=== PATIENT | male | born 1950 | race Caucasian/White ===

== ENCOUNTER 2017-11-04 14:17 | Emergency (ER) | payer MEDICARE, OTHER, SELFPAY ==
[2017-11-04 14:22] VITALS: BP 144/77; PULSE 84; RESP 15; TEMP 36.2; O2SAT 97; BMI 36.7
--- NOTE | 2017-11-04 14:25 | DI.RAD.S_ITS ---
PROCEDURE: XR ELBOW RT MIN 3V INDICATIONS: right elbow swollen TECHNIQUE: 3 views of the elbow were acquired. COMPARISON: None. FINDINGS: Bones: There is lucency in the coronoid process of ulna. No dislocations. No suspicious bony lesions. There is calcification around the medial humeral epicondyle, suspicious for epicondylitis. Soft tissues: No elbow joint effusion. No suspicious soft tissue calcifications. IMPRESSION: 1. Lucency in the coronoid process of ulna, possibly caused by nondisplaced fracture or artifact. Recommend correlation with focal pain/tenderness. If clinical symptoms persist or clinical suspicion for pathology is high, MRI is suggested for further evaluation. 2. Suspect medial epicondylitis. Dictated by: Cathy Hoffman M.D. on 11/04/2017 at 15:39 Approved by: Cathy Hoffman M.D. on 11/04/2017 at 15:44
--- NOTE | 2017-11-04 16:31 | PC.NURSE ---
pt has multiple scratches on rt forearm, states he had been cleaning out Raspberry bushes.
--- NOTE | 2017-11-04 16:43 | ED.EXTPRO ---
HPI - Extremity Problem <Juli Navas PA-C - Last Filed: 11/04/17 18:56> General Chief complaint: Extremity Problem,Nontraumatic Stated complaint: RIGHT ELBOW SWELLING Time Seen by Provider: 11/04/17 16:43 Source: patient Mode of arrival: ambulatory Limitations: no limitations History of Present Illness HPI Narrative: This 67-year-old gentleman comes in due to swelling in the elbow for about 4 days. He denies any specific trauma aside from may be leaning on the elbow, and he has been trimming a lot of roman bushes and doing some yardwork. He states that he does have a history of recurrent bursitis in the elbow due to playing baseball, and has a history of bone chips. He denies any other new repetitive motion or trauma. He was noted to have a temperature of 100? at the walk-in clinic, but had been outside prior and none here. He states that the swelling is not especially painful. No difficulty using the arm or the elbow. Denies any other new complaints or symptoms today. Related Data Home Medications Medication Instructions Recorded Confirmed multivitamin 1 tab PO DAILY #0 09/05/10 11/04/17 saw palmetto 1 cap PO DAILY #0 09/05/10 11/04/17 Previous Rx's Medication Instructions Recorded lisinopril 40 mg PO QDAY #90 tab 02/16/17 amlodipine 10 mg tablet 10 mg PO QDAY #90 tab 09/26/17 cephalexin [Keflex] 500 mg PO QID #28 cap 11/04/17 Allergies Allergy/AdvReac Type Severity Reaction Status Date / Time Sulfa (Sulfonamide Allergy Unknown Verified 11/04/17 14:22 Antibiotics) [SULFA (SULFONAMIDE ANTIBIOTICS)] erythromycin base AdvReac Mild NAUSEA Verified 11/04/17 14:22 [ERYTHROMYCIN BASE] Review of Systems <Juli Navas PA-C - Last Filed: 11/04/17 18:56> Review of Systems All systems reviewed & are unremarkable except as noted in HPI and below Exam <Juli Navas PA-C - Last Filed: 11/04/17 18:56> Narrative Exam Narrative: GENERAL APPEARANCE: Patient sitting comfortably, in no distress. LUNGS: Clear to auscultation bilaterally. HEART: Rate and rhythm regular without murmur, normal S1 and S2, no S3 or S4. MUSCULOSKELETAL: Right elbow mild, nontender effusion. He has full active range of motion. No tenderness over the forearm, upper arm or wrist. DERMATOLOGIC: He has numerous small scrapes and abrasions on both extremities, noted on the right anterior and posterior forearm. Both arms are ch, but the right forearm is noted to be slightly more erythematous and warm on the posterior surface and there is also some patchy erythema on the medial border just proximal to the elbow, no open wounds or drainage. No papules or pustules. Margins of erythema inked Initial Vital Signs Initial Vital Signs: Vital Signs Temperature 97.2 F L 11/04/17 14:22 Pulse Rate 84 11/04/17 14:22 Respiratory Rate 15 11/04/17 14:22 Blood Pressure 144/77 H 11/04/17 14:22 Pulse Oximetry 97 11/04/17 14:22 <Rosenda Langford DO - Last Filed: 11/06/17 16:52> Initial Vital Signs Initial Vital Signs: Vital Signs Temperature 97.2 F L 11/04/17 14:22 Pulse Rate 84 11/04/17 14:22 Respiratory Rate 15 11/04/17 14:22 Blood Pressure 144/77 H 11/04/17 14:22 Pulse Oximetry 97 11/04/17 14:22 Course <Juli Navas PA-C - Last Filed: 11/04/17 18:56> Additional Information: It is not clear from findings today whether patient has early cellulitis. He does not appear to have a septic elbow. Nontender, afebrile on his visit here and this is a recurrent condition. He may have simply had more sun exposure when out working on the right arm dorsum, however he does have also have numerous small abrasions and possibly puncture by a thorn. Will start cephalexin for this, and advised to monitor closely and return if any worsening symptoms over the holiday. He is agreeable Orders Ordered: ED Orders 11/04/17 14:25 XR elbow RT min 3V Stat Vital Signs - 8 hr 11/04/17 14:22 11/04/17 16:55 11/04/17 17:16 Temperature 97.2 F L 98.3 F 98.3 F Pulse Rate 84 84 Respiratory Rate 15 20 Blood Pressure 144/77 H 164/80 H Pulse Oximetry 97 96 <Rosenda Langford DO - Last Filed: 11/06/17 16:52> Orders Ordered: ED Orders 11/04/17 14:25 XR elbow RT min 3V Stat Vital Signs - 8 hr 11/04/17 14:22 11/04/17 16:55 11/04/17 17:16 Temperature 97.2 F L 98.3 F 98.3 F Pulse Rate 84 84 Respiratory Rate 15 20 Blood Pressure 144/77 H 164/80 H Pulse Oximetry 97 96 MDM - Extremity (Nontraumatic) <Juli Navas PA-C - Last Filed: 11/04/17 18:56> Imaging Data extremity: Radiologist's impression: [address] [address] XRay Report Signed Patient: Mick Sanchez MR#: [id number] : 1950 Acct:[id number] Age/Sex: 67 / M Date of Service: 11/04/17 Loc: ED Accession Number: [id number] Procedure: XR elbow RT min 3V Ordering Provider: Juli Navas P.A-C PROCEDURE: XR ELBOW RT MIN 3V INDICATIONS: right elbow swollen TECHNIQUE: 3 views of the elbow were acquired. COMPARISON: None. [address] [address] XRay Report Signed Patient: Mick Sanchez MR#: [id number] : 1950 Acct:[id number] Age/Sex: 67 / M Date of Service: 11/04/17 Loc: ED Accession Number: [id number] Procedure: XR elbow RT min 3V Ordering Provider: Juli Navas P.A-C PROCEDURE: XR ELBOW RT MIN 3V INDICATIONS: right elbow swollen TECHNIQUE: 3 views of the elbow were acquired. COMPARISON: None. FINDINGS: Bones: There is lucency in the coronoid process of ulna. No dislocations. No suspicious bony lesions. There is calcification around the medial humeral epicondyle, suspicious for epicondylitis. Soft tissues: No elbow joint effusion. No suspicious soft tissue calcifications. IMPRESSION: 1. Lucency in the coronoid process of ulna, possibly caused by nondisplaced fracture or artifact. Recommend correlation with focal pain/tenderness. If clinical symptoms persist or clinical suspicion for pathology is high, MRI is suggested for further evaluation. 2. Suspect medial epicondylitis. Dictated by: Cathy Hoffman M.D. on 11/04/2017 at 15:39 Approved by: Cathy Hoffman M.D. on 11/04/2017 at 15:44 Discharge Plan Departure Patient Disposition: Home, Self-Care Clinical Impression: Bursitis, Cellulitis Discharge Date/Time: 11/04/17 17:16 Interventions: ED Discharge Assessment Last Done: 11/04/17 17:16 Instructions: DI for Cellulitis -- Adult, DI for Elbow Bursitis Activity Restrictions/Additional Instructions: Please keep compression over the elbow to help with the swelling. Avoid putting any pressure on the elbow, i.e. keep the arm in your lab when you are sitting. The redness on your arm could just be due to irritation from the roman brambles or sun, but I have sent an antibiotic to your pharmacy in case there is infection there as well. It does not appear at this point that the inside of your elbow is infected. It does look like there is some chronic abnormality on your x-ray, and you need further testing if this does not improve. Please follow-up with your PCP in a few days for recheck, and to discuss further testing such as MRI if not improving. Please return in the interim if you have worsening redness, fever, more pain or swelling or other new symptoms Prescriptions: New cephalexin [Keflex] 500 mg capsule 500 mg PO QID Qty: 28 RF: 0 No Action multivitamin Tablet 1 tab PO DAILY Qty: 0 RF: 0 saw palmetto 1 cap PO DAILY Qty: 0 RF: 0 lisinopril 40 MG tablet 40 mg PO QDAY Qty: 90 RF: 3 amlodipine 10 mg tablet 10 mg PO QDAY Qty: 90 RF: 0 Referrals: Lori Mesa DO [Primary Care Provider] - <Rosenda Langford DO - Last Filed: 11/06/17 16:52> Cosign ED Attending [place]ced[place] Attestation: I was immediately available in the department for consultation. Documentation has been reviewed. I agree with assessment and plan.
[2017-11-04 16:55] VITALS: TEMP 36.8
[2017-11-04 17:16] VITALS: BP 164/80; PULSE 84; RESP 20; TEMP 36.8; O2SAT 96
== END 2017-11-04 17:16 | disposition home or self-care (01) ==
PROVIDERS: Emergency Provider Internal Medicine; Family Provider Family Medicine; PCP Family Medicine
DX: M70.31 Other bursitis of elbow, right elbow (principal); L03.113 Cellulitis of right upper limb
CPT/HCPCS: 73080; 99282; 99283

== ENCOUNTER → 2018-02-16 07:07 | Outpatient (CLI) | payer MEDICARE, OTHER, SELFPAY ==
[2018-02-16 07:59] LABS: Appearance Urine UA CLEAR; Bilirubin Urine UA NEGATIVE (NEGATIVE); Color Urine UA YELLOW; Glucose Urine UA NEGATIVE (Normal); Ketones Urine UA NEGATIVE (NEGATIVE); Leukocyte Esterase Urine UA NEGATIVE (NEGATIVE); Nitrite Urine UA NEGATIVE (Negative); Occult Blood Urine UA NEGATIVE (Negative); Protein Urine UA NEGATIVE (Negative); Urobilinogen Urine UA 0.2 E.U./dL (0.2); pH Urine UA 5.5 (4.5-8.0)
[2018-02-16 09:07] LABS: Add Manual Diff / Slide Review NO; Basophils Percent Auto 0.7 % (0-2); Eosinophils Percent Auto 9.1 % (2-4); Hematocrit 38.6 % (41-53); Hemoglobin 13.3 g/dL (13.5-17.5); Lymphocytes Percent Auto 20.5 % (25-40); Mean Corpuscular HGB Conc 34.4 % (30-36); Mean Corpuscular Hemoglobin 32.4 PG (26-34); Mean Corpuscular Volume 93.9 fL (80-100); Monocytes Percent Auto 6.8 % (3-14); Neutrophils Absolute Auto 5800 /uL (3000-5900); Neutrophils Percent Auto 62.9 % (50-75); Platelet Count 231 X10^3/uL (150-400); Red Blood Cell Count 4.11 X10^6/uL (4.5-5.9); Red Cell Distribution Width 13.6 % (11.6-14.8); White Blood Cell Count 9.2 X10^3/uL (4.5-11.0)
[2018-02-16 09:33] LABS: Alanine Aminotransferase 35 IU/L (21-72); Albumin 4.6 g/dL (3.5-5.0); Albumin Globulin Ratio 1.5 (1.0-2.8); Alkaline Phosphatase 59 U/L (38-126); Aspartate Aminotransferase 24 IU/L (17-59); BUN Creatinine Ratio 31.1 (6-22); Bilirubin Total 0.7 mg/dL (0.2-1.3); Blood Urea Nitrogen 28 mg/dL (9-20); Calcium 9.3 mg/dL (8.4-10.2); Carbon Dioxide 26 mmol/L (22-32); Chloride 105 mmol/L (98-107); Cholesterol 154 mg/dL (140-199); Estimated Glomerular Filt Rate > 60.0 mL/min (>60); Globulin 3.1 g/dL (1.7-4.1); Glucose 87 mg/dL (80-110); HDL Cholesterol 26 mg/dL (40-60); HEMOLYSIS < 15 (0-50); LDL Cholesterol Calculated 87 mg/dL (<100); Potassium 4.4 mmol/L (3.4-5.1); Sodium 146 mmol/L (137-145); Total Protein 7.7 g/dL (6.3-8.2); Triglycerides 206 mg/dL (35-150)
[2018-02-16 10:03] LABS: Prostate Specific Antigen 0.494 ng/mL (0.10-4.00)
[2018-02-16 10:04] LABS: Thyroid Stimulating Hormone 1.84 uIU/mL (0.47-4.68)
== END ==
PROVIDERS: PCP Family Medicine; Visit Provider Family Medicine
DX: Z12.5 Encounter for screening for malignant neoplasm of prostate (principal); E78.5 Hyperlipidemia, unspecified; I10 Essential (primary) hypertension; Z51.81 Encounter for therapeutic drug level monitoring
CPT/HCPCS: 36415; 80053; 80061; 81003; 84153; 84443; 85025

== ENCOUNTER → 2018-08-24 14:29 | Outpatient (CLI) | payer MEDICARE, OTHER, SELFPAY ==
--- NOTE | 2018-08-24 | DI.RAD.S_ITS ---
PROCEDURE: XR LUMBAR SPINE 2-3V INDICATIONS: LOW BACK PAIN TECHNIQUE: 3 views of the lumbar spine were acquired. COMPARISON: [facility], , CT ABDOMEN/PELVIS WITH CONTRAST, 03/26/2006, 19:38. FINDINGS: Bones: A 5 [id number] vertebrae are present. There is normal bony alignment except for slight anterolisthesis of L5 on S1 due to facet hyperostosis and ligamentous laxity at the L5-S1 posterior facet joints. No vertebral body compression fractures. No suspicious bony lesions. Soft tissues: Overlying bowel gas pattern is normal. No suspicious soft tissue calcifications. 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 No suspicion for significant nerve root impingement except at L5-S1 where slight anterolisthesis of L5 is present associated with prominent facet hyperostosis and presumed mild ligamentous laxity. Dictated by: Sunny Quevedo M.D. on 08/24/2018 at 16:14 Approved by: Sunny Quevedo M.D. on 08/24/2018 at 16:16
== END ==
PROVIDERS: PCP Family Medicine; Visit Provider Chiropractor
DX: M54.5 Low back pain (principal); M51.37 Other intervertebral disc degeneration, lumbosacral region; M47.817 Spondylosis without myelopathy or radiculopathy, lumbosacral region
CPT/HCPCS: 72100

== ENCOUNTER → 2019-06-12 11:00 | Outpatient (CLI) | payer MEDICARE, OTHER, SELFPAY ==
--- NOTE | 2019-06-12 11:02 | DI.RAD.S_ITS ---
PROCEDURE: XR CHEST 2V INDICATIONS: cough, increased sputum, fever TECHNIQUE: 2 views of the chest were acquired. COMPARISON: None. FINDINGS: Surgical changes and devices: None. Lungs and pleura: Lungs are clear. No pleural effusions or pneumothorax. Mediastinum: Mediastinal contours are normal. Heart size is normal. Bones and chest wall: No suspicious bony abnormalities. Degenerative changes of the spine and shoulders appear to be age-appropriate, but are not adequately characterized. Soft tissues appear unremarkable. IMPRESSION: Negative chest. No acute cardiopulmonary process is evident. Dictated by: Gee Hart M.D. on 06/12/2019 at 12:08 Approved by: Gee Hart M.D. on 06/12/2019 at 12:09
== END ==
PROVIDERS: PCP Family Medicine; Referring Provider Nurse Practitioner Family; Visit Provider Nurse Practitioner Family
DX: J18.9 Pneumonia, unspecified organism (principal); R05 Cough; R50.9 Fever, unspecified; R09.3 Abnormal sputum
CPT/HCPCS: 71046

== ENCOUNTER → 2019-06-17 07:27 | Outpatient (CLI) | payer MEDICARE, OTHER, SELFPAY ==
[2019-06-17 08:02] LABS: Add Manual Diff / Slide Review NO; Basophils Absolute Auto 0 /uL (0-100); Basophils Percent Auto 0.1 % (0-2); Eosinophils Absolute Auto 100 /uL (0-450); Eosinophils Percent Auto 1.1 % (2-4); Hematocrit 40.7 % (41-53); Hemoglobin 13.9 g/dL (13.5-17.5); Lymphocytes Absolute Auto 2900 /uL (1100-4500); Mean Corpuscular HGB Conc 34.2 % (30-36); Mean Corpuscular Volume 93.7 fL (80-100); Monocytes Absolute Auto 900 /uL (0-900); Monocytes Percent Auto 9.2 % (3-14); Neutrophils Absolute Auto 5700 /uL (1500-7000); Neutrophils Percent Auto 59.6 % (50-75); Platelet Count 269 X10^3/uL (150-400); Red Blood Cell Count 4.34 X10^6/uL (4.5-5.9); Red Cell Distribution Width 13.7 % (11.6-14.8); White Blood Cell Count 9.6 X10^3/uL (4.5-11.0)
[2019-06-17 08:21] LABS: Alanine Aminotransferase 86 IU/L (<50); Albumin 4.5 g/dL (3.5-5.0); Albumin Globulin Ratio 1.2 (1.0-2.8); Alkaline Phosphatase 59 U/L (38-126); Aspartate Aminotransferase 48 IU/L (17-59); BUN Creatinine Ratio 28.8 (6-22); Bilirubin Total 0.7 mg/dL (0.2-1.3); Blood Urea Nitrogen 23 mg/dL (9-20); Calcium 9.3 mg/dL (8.4-10.2); Carbon Dioxide 22 mmol/L (22-32); Chloride 105 mmol/L (98-107); Cholesterol 148 mg/dL (140-199); Estimated Glomerular Filt Rate > 60.0 mL/min (>60); Globulin 3.7 g/dL (1.7-4.1); Glucose 91 mg/dL (80-110); HDL Cholesterol 24 mg/dL (40-60); HEMOLYSIS < 15 (0-50); LDL Cholesterol Calculated 82 mg/dL (<100); Potassium 4.1 mmol/L (3.4-5.1); Sodium 140 mmol/L (137-145); Total Protein 8.2 g/dL (6.3-8.2); Triglycerides 212 mg/dL (35-150)
[2019-06-17 08:51] LABS: Prostate Specific Antigen Scrn 0.496 ng/mL (0.1-4.0)
[2019-06-17 09:13] LABS: Thyroid Stimulating Hormone 3.31 uIU/mL (0.47-4.68)
== END ==
PROVIDERS: PCP Family Medicine; Referring Provider Family Medicine; Visit Provider Family Medicine
DX: E66.9 Obesity, unspecified (principal); I10 Essential (primary) hypertension
CPT/HCPCS: 36415; 80053; 80061; 84153; 84443; 85025; G0103

== ENCOUNTER → 2021-02-08 08:00 | Outpatient (CLI) | payer MEDICARE, OTHER, SELFPAY ==
[2021-02-08 09:20] LABS: Add Manual Diff / Slide Review NO; Basophils Absolute Auto 100 /uL (0-100); Basophils Percent Auto 0.9 % (0-2); Eosinophils Absolute Auto 900 /uL (0-450); Eosinophils Percent Auto 11.5 % (2-4); Hematocrit 40.8 % (41-53); Hemoglobin 13.7 g/dL (13.5-17.5); Lymphocytes Absolute Auto 1500 /uL (1100-4500); Mean Corpuscular HGB Conc 33.6 % (30-36); Mean Corpuscular Hemoglobin 32.2 PG (26-34); Mean Corpuscular Volume 95.6 fL (80-100); Monocytes Absolute Auto 600 /uL (0-900); Monocytes Percent Auto 8.2 % (3-14); Neutrophils Absolute Auto 4600 /uL (1500-7000); Neutrophils Percent Auto 59.4 % (50-75); Platelet Count 257 X10^3/uL (150-400); Red Blood Cell Count 4.27 X10^6/uL (4.5-5.9); Red Cell Distribution Width 13.4 % (11.6-14.8); White Blood Cell Count 7.7 X10^3/uL (4.5-11.0)
[2021-02-08 09:49] LABS: Alanine Aminotransferase 42 IU/L (<50); Albumin Globulin Ratio 1.6 (1.0-2.8); Alkaline Phosphatase 64 U/L (38-126); Aspartate Aminotransferase 43 IU/L (17-59); BUN Creatinine Ratio 35.6 (6-22); Bilirubin Total 0.8 mg/dL (0.2-1.3); Blood Urea Nitrogen 32 mg/dL (9-20); Calcium 9.8 mg/dL (8.4-10.2); Carbon Dioxide 27 mmol/L (22-32); Chloride 103 mmol/L (98-107); Cholesterol 199 mg/dL (140-199); Estimated Glomerular Filt Rate > 60.0 mL/min (>60); Globulin 3.2 g/dL (1.7-4.1); Glucose 96 mg/dL (80-110); HDL Cholesterol 35 mg/dL (40-60); HEMOLYSIS < 15 (0-50); LDL Cholesterol Calculated 130 mg/dL (<100); Potassium 4.4 mmol/L (3.4-5.1); Sodium 139 mmol/L (137-145); Total Protein 8.2 g/dL (6.3-8.2); Triglycerides 171 mg/dL (35-150)
[2021-02-08 10:17] LABS: Prostate Specific Antigen Scrn 0.401 ng/mL (0.1-4.0)
== END ==
PROVIDERS: PCP Family Medicine; Referring Provider Family Medicine; Visit Provider Family Medicine
DX: I10 Essential (primary) hypertension (principal); Z12.5 Encounter for screening for malignant neoplasm of prostate
CPT/HCPCS: 36415; 80053; 80061; 85025; G0103

== ENCOUNTER → 2022-05-17 07:13 | Outpatient (CLI) | payer MEDICARE, OTHER, SELFPAY ==
[2022-05-17 08:09] LABS: Add Manual Diff / Slide Review NO; Basophils Absolute Auto 100 /uL (0-100); Basophils Percent Auto 0.8 % (0-2); Eosinophils Absolute Auto 800 /uL (0-450); Eosinophils Percent Auto 9.3 % (2-4); Hematocrit 39.1 % (41-53); Hemoglobin 13.6 g/dL (13.5-17.5); Lymphocytes Absolute Auto 2200 /uL (1100-4500); Lymphocytes Percent Auto 26.4 % (25-40); Mean Corpuscular HGB Conc 34.7 % (30-36); Mean Corpuscular Hemoglobin 32.7 PG (26-34); Monocytes Absolute Auto 800 /uL (0-900); Monocytes Percent Auto 9.8 % (3-14); Neutrophils Absolute Auto 4500 /uL (1500-7000); Neutrophils Percent Auto 53.7 % (50-75); Platelet Count 229 X10^3/uL (150-400); Red Blood Cell Count 4.16 X10^6/uL (4.5-5.9); Red Cell Distribution Width 13.6 % (11.6-14.8); White Blood Cell Count 8.3 X10^3/uL (4.5-11.0)
[2022-05-17 09:03] LABS: Alanine Aminotransferase 55 IU/L (<50); Albumin 4.6 g/dL (3.5-5.0); Albumin Globulin Ratio 1.2 (1.0-2.8); Alkaline Phosphatase 66 U/L (38-126); Aspartate Aminotransferase 44 IU/L (17-59); BUN Creatinine Ratio 26.2 (6-22); Bilirubin Total 0.5 mg/dL (0.2-1.3); Blood Urea Nitrogen 22 mg/dL (9-20); Carbon Dioxide 24 mmol/L (22-32); Chloride 104 mmol/L (98-107); Cholesterol 174 mg/dL (140-199); Estimated Glomerular Filt Rate > 60 mL/min (>60); Globulin 3.8 g/dL (1.7-4.1); Glucose 108 mg/dL (80-110); HDL Cholesterol 26 mg/dL (40-60); HEMOLYSIS < 15 (0-50); LDL Cholesterol Calculated 99 mg/dL (<100); Potassium 4.3 mmol/L (3.4-5.1); Sodium 141 mmol/L (137-145); Total Protein 8.4 g/dL (6.3-8.2); Triglycerides 243 mg/dL (35-150)
[2022-05-17 09:18] LABS: TSH w/ Reflex to FT4 2.95 uIU/mL (0.47-4.68)
[2022-05-17 09:33] LABS: Prostate Specific Antigen Scrn 0.441 ng/mL (0.1-4.0)
== END ==
PROVIDERS: PCP Family Medicine; Referring Provider Family Medicine; Visit Provider Family Medicine
DX: I10 Essential (primary) hypertension (principal); Z12.5 Encounter for screening for malignant neoplasm of prostate; Z00.00 Encounter for general adult medical examination without abnormal findings
CPT/HCPCS: 36415; 80053; 80061; 84443; 85025; G0103

== ENCOUNTER → 2023-05-21 07:45 | Outpatient (CLI) | payer MEDICARE, OTHER, SELFPAY ==
[2023-05-21 08:10] LABS: Add Manual Diff / Slide Review NO; Basophils Absolute Auto 100 /uL (0-100); Basophils Percent Auto 0.9 % (0-2); Eosinophils Absolute Auto 600 /uL (0-450); Eosinophils Percent Auto 7.9 % (2-4); Hematocrit 39.8 % (41-53); Hemoglobin 13.7 g/dL (13.5-17.5); Lymphocytes Absolute Auto 1800 /uL (1100-4500); Mean Corpuscular HGB Conc 34.4 % (30-36); Mean Corpuscular Hemoglobin 32.3 PG (26-34); Mean Corpuscular Volume 93.8 fL (80-100); Monocytes Absolute Auto 600 /uL (0-900); Monocytes Percent Auto 7.8 % (3-14); Neutrophils Absolute Auto 4900 /uL (1500-7000); Neutrophils Percent Auto 61.4 % (50-75); Platelet Count 223 X10^3/uL (150-400); Red Blood Cell Count 4.24 X10^6/uL (4.5-5.9); Red Cell Distribution Width 13.7 % (11.6-14.8)
[2023-05-21 08:34] LABS: HEMOLYSIS < 15 (0-50); Iron 80 ug/dL (49-181)
[2023-05-21 08:38] LABS: Alanine Aminotransferase 32 IU/L (<50); Albumin 4.6 g/dL (3.5-5.0); Albumin Globulin Ratio 1.3 (1.0-2.8); Alkaline Phosphatase 63 U/L (38-126); Aspartate Aminotransferase 28 IU/L (17-59); BUN Creatinine Ratio 27.6 (6-22); Bilirubin Total 0.6 mg/dL (0.2-1.3); Blood Urea Nitrogen 27 mg/dL (9-20); Calcium 9.9 mg/dL (8.4-10.2); Carbon Dioxide 25 mmol/L (22-32); Chloride 103 mmol/L (98-107); Cholesterol 157 mg/dL (140-199); Estimated Glomerular Filt Rate > 60 mL/min (>60); Globulin 3.5 g/dL (1.7-4.1); Glucose 103 mg/dL (80-110); HDL Cholesterol 30 mg/dL (40-60); HEMOLYSIS < 15 (0-50); LDL Cholesterol Calculated 85 mg/dL (<100); Potassium 4.5 mmol/L (3.4-5.1); Sodium 138 mmol/L (137-145); Total Protein 8.1 g/dL (6.3-8.2); Triglycerides 212 mg/dL (35-150)
[2023-05-21 08:45] LABS: Percent Iron Saturation 26 % (20-50); Total Iron Binding Capacity 303 ug/dL (261-462); Transferrin 259 mg/dL (206-381)
[2023-05-21 09:06] LABS: Prostate Specific Antigen Scrn 0.596 ng/mL (0.1-4.0)
[2023-05-21 09:25] LABS: Vitamin B12 791 pg/mL (239-931)
== END ==
LOC: LAB 07:46
PROVIDERS: PCP Family Medicine; Referring Provider Family Medicine; Visit Provider Family Medicine
DX: Z00.00 Encounter for general adult medical examination without abnormal findings (principal); G47.33 Obstructive sleep apnea (adult) (pediatric); I10 Essential (primary) hypertension; Z12.5 Encounter for screening for malignant neoplasm of prostate; D64.9 Anemia, unspecified
CPT/HCPCS: 36415; 80053; 80061; 82607; 83540; 83550; 85025; G0103

== ENCOUNTER → 2024-05-26 07:29 | Outpatient (CLI) | payer MEDICARE, OTHER, SELFPAY ==
[2024-05-26 08:18] LABS: Add Manual Diff / Slide Review NO; Basophils Absolute Auto 100 /uL (0-100); Basophils Percent Auto 0.8 % (0-2); Eosinophils Absolute Auto 800 /uL (0-450); Eosinophils Percent Auto 9.5 % (2-4); Hematocrit 42.5 % (41-53); Hemoglobin 14.6 g/dL (13.5-17.5); Lymphocytes Absolute Auto 1600 /uL (1100-4500); Lymphocytes Percent Auto 20.4 % (25-40); Mean Corpuscular HGB Conc 34.3 % (30-36); Mean Corpuscular Hemoglobin 32.4 PG (26-34); Mean Corpuscular Volume 94.5 fL (80-100); Monocytes Absolute Auto 700 /uL (0-900); Monocytes Percent Auto 8.4 % (3-14); Neutrophils Absolute Auto 4900 /uL (1500-7000); Neutrophils Percent Auto 60.9 % (50-75); Platelet Count 208 X10^3/uL (150-400); Red Cell Distribution Width 13.4 % (11.6-14.8)
[2024-05-26 08:33] LABS: HEMOLYSIS < 15 (0-50); Iron 98 ug/dL (49-181)
[2024-05-26 08:37] LABS: Alanine Aminotransferase 34 IU/L (<50); Albumin 4.8 g/dL (3.5-5.0); Albumin Globulin Ratio 1.5 (1.0-2.8); Alkaline Phosphatase 64 U/L (38-126); Aspartate Aminotransferase 34 IU/L (17-59); BUN Creatinine Ratio 22.4 (6-22); Bilirubin Total 0.9 mg/dL (0.2-1.3); Blood Urea Nitrogen 24 mg/dL (9-20); Calcium 9.4 mg/dL (8.4-10.2); Carbon Dioxide 22 mmol/L (22-32); Chloride 107 mmol/L (98-107); Cholesterol 204 mg/dL (140-199); Estimated Glomerular Filt Rate > 60 mL/min (>60); Globulin 3.1 g/dL (1.7-4.1); Glucose 111 mg/dL (80-110); HDL Cholesterol 31 mg/dL (40-60); HEMOLYSIS < 15 (0-50); LDL Cholesterol Calculated 127 mg/dL (<100); Potassium 4.3 mmol/L (3.4-5.1); Sodium 138 mmol/L (137-145); Total Protein 7.9 g/dL (6.3-8.2); Triglycerides 231 mg/dL (35-150)
[2024-05-26 08:47] LABS: Percent Iron Saturation 39 % (20-50); Total Iron Binding Capacity 249 ug/dL (261-462); Transferrin 217 mg/dL (206-381)
[2024-05-26 09:05] LABS: Prostate Specific Antigen Scrn 0.551 ng/mL (0.1-4.0)
[2024-05-26 09:09] LABS: Ferritin 169 ng/mL (18-464)
[2024-05-26 09:23] LABS: Vitamin B12 827 pg/mL (239-931)
== END ==
PROVIDERS: PCP Family Medicine; Referring Provider Family Medicine; Visit Provider Family Medicine
DX: Z00.00 Encounter for general adult medical examination without abnormal findings (principal); D64.9 Anemia, unspecified; I10 Essential (primary) hypertension; Z12.5 Encounter for screening for malignant neoplasm of prostate; G47.33 Obstructive sleep apnea (adult) (pediatric)
CPT/HCPCS: 36415; 80053; 80061; 82607; 82728; 83540; 83550; 85025; G0103